=== PATIENT | female | born 1985 | race American Indian/Alaskan Native ===

== ENCOUNTER 2017-07-16 05:43 | Emergency (ER) | payer OTHER ==
[2017-07-16 05:54] VITALS: TEMP 98.2; O2SAT 99
--- NOTE | 2017-07-16 06:10 | C.PDOC ---
History Of Present Illness 32 yo female come in for evaluation of Left ear FB . Pt sts, " was seeping and fly got in my ear".Otherwise, denies any other active complaints. Time Seen by Provider: 07/16/17 05:58 Chief Complaint (Nursing): ENT Problem History Per: Patient Onset/Duration Of Symptoms: Sudden Onset Past Medical History Reviewed: Historical Data, Nursing Documentation, Vital Signs Vital Signs: Last Vital Signs Temp 98.2 F 07/16/17 05:51 Pulse 86 07/16/17 05:51 Resp 18 07/16/17 05:51 BP 117/77 07/16/17 05:51 Pulse Ox 99 07/16/17 05:51 - Medical History PMH: No Chronic Diseases Surgical History: No Surg Hx Family History: States: No Known Family Hx - Social History Hx Tobacco Use: No Hx Alcohol Use: No Hx Substance Use: No - Immunization History Hx Tetanus Toxoid Vaccination: No Hx Influenza Vaccination: No Hx Pneumococcal Vaccination: No Review Of Systems Except As Marked, All Systems Reviewed And Found Negative. Constitutional: Negative for: Fever, Chills Eyes: Negative for: Vision Change ENT: Positive for: Ear Pain. Negative for: Ear Discharge, Throat Pain, Throat Swelling Skin: Negative for: Rash Neurological: Negative for: Weakness, Numbness, Altered Mental Status, Headache , Dizziness Physical Exam - Physical Exam Appears: Well, Non-toxic, No Acute Distress Skin: Normal Color, Warm Head: Normacephalic Eye(s): bilateral: PERRL Ear(s): Left: Normal, Right: Other (insect noted in ear canal) Nose: Normal, No Discharge Oral Mucosa: Moist Neurological/Psych: Oriented x3, Normal Speech ED Course And Treatment O2 Sat by Pulse Oximetry: 99 Pulse Ox Interpretation: Normal Progress Note: On re-eval, pt is afebrile, hemodynamicaly stable. non-toxic. Right ear: Insect FB removed w/foreceps. On re-eavl, ear canal and TM - normal. Pt advised. ref. to F/U with ENT in 1-2 days for re-eavl. return if any new changes. Disposition - Disposition Referrals: Austin Gallagher MD [Staff Provider] - Disposition: HOME/ ROUTINE Disposition Time: 06:07 Condition: STABLE Instructions: Ear Foreign Body (ED) Forms: [facility] (Thai) - Clinical Impression Clinical Impression: Foreign body of ear
[2017-07-16 06:29] VITALS: BP 132/78; PULSE 90; RESP 20
== END 2017-07-16 06:27 | disposition home or self-care (01) ==
LOC: C.ER 05:43
DX: T16.2XXA Foreign body in left ear, initial encounter (principal); X58.XXXA Exposure to other specified factors, initial encounter; Y92.009 Unspecified place in unspecified non-institutional (private) residence as the place of occurrence of the external cause